=== PATIENT | female | born 1945 | race Hispanic/Latino ===

== ENCOUNTER 2017-02-03 08:04 | Outpatient (CLI) | payer MEDICARE ==
--- NOTE | 2017-02-03 08:49 | Mammography Report ---
BILATERAL DIGITAL SCREENING MAMMOGRAM with CAD : 02/03/17 08:04:00 CLINICAL: Routine screening. COMPARISON:01/31/16 FINDINGS: The breasts are heterogeneously dense, which may obscure small masses.Stable fibroglandular pattern with a stable upper asymmetry on the right MLO view. Bilateral benign calcifications. No mass, architectural distortion or suspicious calcifications. IMPRESSION: No mammographic evidence of malignancy. BI-RADS CATEGORY: 2 -- Benign RECOMMENDATION: Routine mammographic screening in one year. COMMENT: Patient follow-up letters are generated by our [employer] application.
== END 2017-02-03 08:05 | disposition home or self-care (01) ==
LOC: SPVWC 08:04
PROVIDERS: ATTEND Surgery
DX: Z12.31 Encounter for screening mammogram for malignant neoplasm of breast (principal)
CPT/HCPCS: 77067; G0202

== ENCOUNTER 2018-02-09 09:36 | Outpatient (CLI) | payer MEDICARE ==
--- NOTE | 2018-02-09 10:54 | Mammography Report ---
BILATERAL DIGITAL SCREENING MAMMOGRAM with CAD: 02/09/18 09:36:00 CLINICAL: Routine screening. COMPARISON:02/03/17 and 01/31/16 FINDINGS: The breasts are heterogeneously dense, which may obscure small masses.A right upper asymmetry on MLO view as a partially circumscribed margin compared to prior exams and requires additional imaging.No architectural distortion or suspicious calcifications. Bilateral benign calcifications. IMPRESSION: Right upper asymmetry requiring further workup. BI-RADS CATEGORY: 0 -- Additional Imaging Evaluation Required RECOMMENDATION: Recall for right upper breast ultrasound. ACR BI-RADS MAMMOGRAPHIC CODES: 0 = Needs additional imaging evaluation; 1 = Negative; 2 = Benign; 3 = Probably benign; 4 = Suspicious; 5 = Malignant; 6 = Known biopsy-proven malignancy COMMENT: 1. Dense breast tissue, i.e., adenosis, fibrocystic changes, etc., may obscure an underlying neoplasm. 2. Approximately 10% of cancers are not detected with mammography. 3. A negative mammography report should not delay biopsy if a clinically suspicious mass is present. COMMENT: Patient follow-up letters are generated via our [employer] application.
== END 2018-02-09 09:37 | disposition home or self-care (01) ==
LOC: SPVWC 09:36
PROVIDERS: ATTEND Surgery
DX: Z12.31 Encounter for screening mammogram for malignant neoplasm of breast (principal)
CPT/HCPCS: 77067

== ENCOUNTER 2018-02-16 08:39 | Outpatient (CLI) | payer MEDICARE ==
--- NOTE | 2018-02-16 09:43 | Ultrasound Report ---
RIGHT DIGITAL DIAGNOSTIC MAMMOGRAM and RIGHT BREAST ULTRASOUND: 02/16/18 08:39:00 CLINICAL: Recalled for asymmetry. COMPARISON:02/09/18 screening FINDINGS: Ultrasound of the upper right breast was performed and demonstrated normal fibroglandular structures with no mass, cyst or shadowing to correlate with the upper mammographic asymmetry on the MLO view. Lateralmedial and spot magnification MLO views were performed. Although asymmetry persists on the spot view, the upper asymmetry on the lateral view is not significantly changed compared to prior exams. IMPRESSION: A benign summation density of the upper right breast. BI-RADS CATEGORY: 2 - - Benign RECOMMENDATION: Routine mammographic screening in one year. ACR BI-RADS MAMMOGRAPHIC CODES: 0 = Needs additional imaging evaluation; 1 = Negative; 2 = Benign; 3 = Probably benign; 4 = Suspicious; 5 = Malignant; 6 = Known biopsy-proven malignancy COMMENT: 1. Dense breast tissue, i.e., adenosis, fibrocystic changes, etc., may obscure an underlying neoplasm. 2. Approximately 10% of cancers are not detected with mammography. 3. A negative mammography report should not delay biopsy if a clinically suspicious mass is present. COMMENT: Patient follow-up letters are generated via our [employer] application.
== END 2018-02-16 08:40 | disposition home or self-care (01) ==
LOC: SPVWC 08:39
PROVIDERS: ATTEND Surgery
DX: R92.8 Other abnormal and inconclusive findings on diagnostic imaging of breast (principal); N64.89 Other specified disorders of breast

== ENCOUNTER 2019-07-26 13:54 | Outpatient (CLI) | payer MEDICARE ==
--- NOTE | 2019-07-26 14:34 | Mammography Report ---
DIGITAL SCREENING MAMMOGRAM WITH CAD, 07/26/2019 INDICATION: Routine screening mammography. TECHNIQUE: Digital bilateral 2D mammography was obtained in the craniocaudal and mediolateral obliq ue projections. This examination was interpreted with the benefit of Computer-Aided Detection analysi s. COMPARISON: 02/09/2018 FINDINGS: Breast Density: The breasts are heterogeneously dense, which may obscure small masses. There is no evidence of dominant mass, suspicious calcifications or architectural distortion in eithe r breast. Bilateral benign calcifications. IMPRESSION: No mammographic evidence of malignancy. Follow up recommendation: Routine yearly BI-RADS Category 2: Benign. A "normal" or negative report should not discourage follow up or biopsy of a clinically significant f inding. A written summary of these findings will be mailed to the patient. The patient will be entered into a mammography reporting system which will generate a reminder letter for the patient's next appointmen t at the appropriate interval. The [employer] recommends yearly mammograms starting at age 40 and continuing as l beau as a woman is in good health. Breast MRI is recommended for women with an approximate 20-25% or greater lifetime risk of breast cancer, including women with a strong family history of breast or ova beatrice cancer or who have been treated for Hodgkin's disease. Signer Name: Perez Monterroso MD Signed: 07/26/2019 2:30 PM Workstation Name: [id number]
== END 2019-07-26 13:55 | disposition home or self-care (01) ==
LOC: SPVWC 13:54
PROVIDERS: ATTEND Surgery
DX: Z12.31 Encounter for screening mammogram for malignant neoplasm of breast (principal); I10 Essential (primary) hypertension
CPT/HCPCS: 77067

== ENCOUNTER 2020-07-31 09:37 | Outpatient (CLI) | payer MEDICARE ==
--- NOTE | 2020-07-31 10:15 | Mammography Report ---
DIGITAL SCREENING MAMMOGRAM WITH CAD, 07/31/2020 INDICATION: Routine screening mammography. SCREENING MAMMO TECHNIQUE: Digital bilateral 2D mammography was obtained in the craniocaudal and mediolateral obliq ue projections. This examination was interpreted with the benefit of Computer-Aided Detection analysi s. COMPARISON: 02/09/2018 and 07/26/2019. FINDINGS: Breast Density: The breasts are heterogeneously dense, which may obscure small masses. There is no evidence of dominant mass, suspicious calcifications or architectural distortion in eithe r breast. There are benign secretory calcifications bilaterally. IMPRESSION: No mammographic evidence of malignancy or significant change. Follow up recommendation: Routine yearly BI-RADS Category 2: Benign. A "normal" or negative report should not discourage follow up or biopsy of a clinically significant f inding. A written summary of these findings will be mailed to the patient. The patient will be entered into a mammography reporting system which will generate a reminder letter for the patient's next appointmen t at the appropriate interval. The [employer] recommends yearly mammograms starting at age 40 and continuing as l beau as a woman is in good health. Breast MRI is recommended for women with an approximate 20-25% or greater lifetime risk of breast cancer, including women with a strong family history of breast or ova beatrice cancer or who have been treated for Hodgkin's disease. Signer Name: Cortes Ellis MD Signed: 07/31/2020 10:10 AM Workstation Name: [id number]
== END 2020-07-31 09:38 | disposition home or self-care (01) ==
LOC: SPVWC 09:37
PROVIDERS: ATTEND Surgery
DX: Z12.31 Encounter for screening mammogram for malignant neoplasm of breast (principal)
CPT/HCPCS: 77067

== ENCOUNTER 2020-11-29 10:51 | Outpatient (CLI) | payer MEDICARE ==
--- NOTE | 2020-11-29 12:48 | Mammography Report ---
DEXA BONE DENSITY SCAN INDICATION / CLINICAL INFORMATION: OSTEPOROSIS. 74 years Female COMPARISON: 09/06/2018 LUMBAR SPINE, L1-L4: - Bone mineral density (BMD) = 0.776 g/cm2. - T-score = -2.5 - Z-score = -0.2 Change (%) since most recent prior (if available): 1.7% decrease LEFT HIP, NECK : - Bone mineral density (BMD) = 0.522 g/cm2. - T-score = -2.9 - Z-score = -1 Change (%) since most recent prior (if available): 0.4% decrease IMPRESSION: 1. WHO Classification: Osteoporosis. Fracture Risk: High. Note: 10-Year Fracture Risk (FRAX) not reported. This DEXA unit lacks FRAX functionality. BMD Reporting Guidelines (ISCD, 2015) BMD Reporting in Postmenopausal Women and in Men Age 50 and Older - T-scores are preferred. - The WHO densitometric classification is applicable. BMD Reporting in Females Prior to Menopause and in Males Younger Than Age 50 - Z-scores, not T-scores, are preferred. This is particularly important in children. - A Z-score of -2.0 or lower is defined as below the expected range for age, and a Z-score above -2.0 is within the expected range for age. - Osteoporosis cannot be diagnosed in men under age 50 on the basis of BMD alone. - The WHO diagnostic criteria may be applied to women in the menopausal transition. http://www.iscd.org/official-positions/4539-ldbo-cpewkunf-positions-adult/ Signer Name: Oniel Romero MD Signed: 11/29/2020 12:43 PM Workstation Name: [email or web address]
== END 2020-11-29 10:52 | disposition home or self-care (01) ==
LOC: MAMMO 10:51
PROVIDERS: ATTEND Obstetrics & Gynecology
DX: Z13.820 Encounter for screening for osteoporosis (principal); M81.0 Age-related osteoporosis without current pathological fracture
CPT/HCPCS: 77080

== ENCOUNTER 2021-08-26 09:04 | Outpatient (CLI) | payer MEDICARE ==
--- NOTE | 2021-08-26 11:04 | Mammography Report ---
DIGITAL SCREENING MAMMOGRAM WITH CAD, 08/26/2021 CLINICAL INFORMATION / INDICATION: Routine screening mammography. SCREENING MAMMOGRAM TECHNIQUE: Digital bilateral 2D mammography was obtained in the craniocaudal and mediolateral obliqu e projections. This examination was interpreted with the benefit of Computer-Aided Detection analysis . COMPARISON: 07/31/2020, 07/26/2019, 02/09/2018 FINDINGS: Breast Density: The breasts are heterogeneously dense, which may obscure small masses. No dominant mass, suspicious calcifications, or architectural distortion in either breast. Unchanged calcifications in both breasts. IMPRESSION: No mammographic evidence of malignancy. Follow up recommendation: Routine yearly BI-RADS Category 2: Benign. A "normal" or negative report should not discourage follow up or biopsy of a clinically significant f inding. A written summary of these findings will be mailed to the patient. The patient will be entered into a mammography reporting system which will generate a reminder letter for the patient's next appointmen t at the appropriate interval. The [employer] recommends yearly mammograms starting at age 40 and continuing as l beau as a woman is in good health. Breast MRI is recommended for women with an approximate 20-25% or greater lifetime risk of breast cancer, including women with a strong family history of breast or ova beatrice cancer or who have been treated for Hodgkin's disease. Signer Name: Rogelio Alvarado DO Signed: 08/26/2021 11:00 AM Workstation Name: [id number]
== END 2021-08-26 09:05 | disposition home or self-care (01) ==
LOC: SPVWC 09:04
PROVIDERS: ATTEND Obstetrics & Gynecology
DX: Z12.31 Encounter for screening mammogram for malignant neoplasm of breast (principal)
CPT/HCPCS: 77067